=== PATIENT | female | born 1950 | race Caucasian/White ===

== ENCOUNTER 2024-01-24 14:56 | Emergency (ER) | payer MEDICARE, MEDICAID ==
[~2024-01-24] VITALS: Ht 162.6 cm; Wt 91.8 kg
[~2024-01-24 14:56] MED LIST: ADV50250; ALBU18HF2 INH; ALBU2.5V10 NEB; ANAS1TAB10 PO; APIX5TAB3 PO; ASPI-1397 PO; ATOR40TA72 PO; BACL10TA2 PO; CETI10TA14 PO; CHOL20002 PO; CYCL1DRO EACHEYE; FLUT16SP26 BOTHNARES; FURO40TA4 PO; GABA300T25; KETO-96; MILN50TA PO; MONT-40 PO; OMEP20CA16 PO; ONDA4TAB12 PO; POTA8TAB69; TRIA1TAB3
[2024-01-24 14:59] VITALS: BP 138/59; PULSE 73; TEMP 98; O2SAT 98
[2024-01-24 16:06] VITALS: RESP 20
[2024-01-24] MEDS: HYDROcodone/acetaminophen 10/325mg tab PO ONE (16:06)
[2024-01-24] MEDS: LIDOcaine 5% patch TP ONE (16:07)
[2024-01-24] MEDS ORDERED: LIDO700A32 TOP (16:14)
== END 2024-01-24 17:07 | disposition home or self-care (01) ==
LOC: ER 14:56
DX: M54.50 Low back pain, unspecified (principal); J44.9 Chronic obstructive pulmonary disease, unspecified; Z88.5 Allergy status to narcotic agent; Z79.899 Other long term (current) drug therapy; Z79.82 Long term (current) use of aspirin
CPT/HCPCS: 99284

== ENCOUNTER 2024-01-30 08:17 | Emergency (ER) | payer MEDICARE, MEDICAID ==
[~2024-01-30] VITALS: Ht 162.6 cm; Wt 93.2 kg
[~2024-01-30 08:17] MED LIST changes: +LIDO700A32 TOP
[2024-01-30 08:21] VITALS: TEMP 97.7
[2024-01-30] MEDS: cyclobenzaprine 10mg tablet PO ONE (12:10)
[2024-01-30] MEDS: LIDOcaine 5% patch TP ONE (13:52)
[2024-01-30 14:01] VITALS: BP 109/45; PULSE 69; O2SAT 96
[2024-01-30 14:22] VITALS: RESP 16
[2024-01-30] MEDS: HYDROcodone/acetaminophen 10/325mg tab PO ONE (14:22)
[2024-01-30] MEDS ORDERED: CYCL-1 PO (14:59)
[2024-01-30] MEDS ORDERED: LIDO1ADH78 TOP (14:59)
== END 2024-01-30 15:24 | disposition home or self-care (01) ==
LOC: ER 08:18
DX: S39.012A Strain of muscle, fascia and tendon of lower back, initial encounter (principal); J44.9 Chronic obstructive pulmonary disease, unspecified; E11.9 Type 2 diabetes mellitus without complications; Z88.6 Allergy status to analgesic agent; Z88.5 Allergy status to narcotic agent; Z79.899 Other long term (current) drug therapy; Z79.82 Long term (current) use of aspirin; X58.XXXA Exposure to other specified factors, initial encounter; Y93.89 Activity, other specified; Y92.89 Other specified places as the place of occurrence of the external cause; Y99.8 Other external cause status
CPT/HCPCS: 72100; 99284

== ENCOUNTER 2025-01-25 06:42 | Day surgery (SDC) | payer MEDICARE, MEDICAID ==
[~2025-01-25] VITALS: Ht 162.6 cm; Wt 96.8 kg
[2025-01-25] VITALS (13 sets, daily range): BP systolic 120–146; BP diastolic 3–65; PULSE 65–80; RESP 15–18; TEMP 98.4; O2SAT 96–100
[~2025-01-25 06:42] MED LIST changes: +CYCL-1 PO; +LIDO1ADH78 TOP; +ONDA-243 PO; -ONDA4TAB12 PO
[2025-01-25] MEDS ORDERED: FERR325T35 PO (08:25)
[2025-01-25] MEDS ORDERED: EMPA10TA PO (08:25)
[2025-01-25] MEDS ORDERED: SACU1TAB7 PO (08:25)
[2025-01-25] MEDS: MIDAZolam 1mg/ml 10ml vial IV ONE (09:47)
[2025-01-25] MEDS: fentaNYL/PF 50MCG/1 ML 2ML syringe IV ONE (09:47)
[2025-01-25] MEDS: normal saline 1000ml 1,000 ML IV SCH (09:48)
--- NOTE | 2025-01-25 11:28 | CARDIOLOGY REPORT ---
APPROVED REPORT EXAM: Focused, limited transesophageal echocardiogram with color flow Doppler. Patient Location: OUT-PATIENT Blood Pressure: 121/63 mmHg Heart Rate: 68 bpm Rhythm: SINUS Indications RE-ASSESS AVR 2011 (UNKNOWN SIZE/MODEL) ATRIAL FIBRILALTION CARDIOMEGALY ADELITA PROBE PASSED BY: Daniel Isaacs MD Shot Man: Daniel ISAACS MD Previous echo: 01/04/25 CVC UNK EF: 80%; smLV; modLVH; LVOT grad: 56 w/ gordo; smRV; SEVavr as - STEF N R; pkV: 4.39; grrad: 77 / 50; AI: NR; mMAC; RVSP 34 LEFT VENTRICLE Small LV size with hyperdynamic function. At least moderate concentric hypertrophy. Increased velocit ies throughout LV / LVOT / AV / ASC AO detected as a result of the hyperdynamic function and prosthes is stenosis. Resting intercavitary gradient unable to be measured due to poor gastric views. Suspect significant intercavitary gradient. LVEF is 80%. RIGHT VENTRICLE RV is small in size with hyperdynamic function. ATRIA Left atrium appears mildly dilated. Intact interatrial septum - no flow detected. AORTIC VALVE Unknown size or model bioprosthetic SAVR appears well seated with abnormal function. Trace central va lvular leak Quantitative data unobtainable due to poor gastric windows. Significant leaflet restrict ion demonstrated by reduced excursion and increased transvalvular and ascending aorta turbulance. Mel pect LVOT gradient as well. MITRAL VALVE Mild MV annular calcification without stenosis. Trace regurgitation. Limited evaluation due to focuse d exam. TRICUSPID VALVE TV appears structurally normal with trace regurgitation. Limited evaluation due to focused exam. PULMONIC VALVE Normal PV without obvious stenosis, physiologic insufficiency. Limited evaluation due to focused exa m. GREAT VESSELS Aortic root appears normal in size. Ascending aorta appears upper limit normal in size. PERICARDIUM Normal pericardium. Trivial effusion without hemodynamic compromise. CONCLUSION Small LV size with hyperdynamic function. At least moderate concentric hypertrophy. Increased velocit ies throughout LV / LVOT / AV / ASC AO detected as a result of the hyperdynamic function and prosthes is stenosis. Resting intercavitary gradient unable to be measured due to poor gastric views. Suspect significant intercavitary gradient. LVEF is 80%. RV is small in size with hyperdynamic function. Left atrium appears mildly dilated. Intact interatrial septum - no flow detected. Unknown size or model b ioprosthetic SAVR appears well seated with abnormal function. Trace central valvular leak Quantitativ e data unobtainable due to poor gastric windows. Significant leaflet restriction demonstrated by redu jett excursion and increased transvalvular and ascending aorta turbulance. Suspect LVOT gradient as we ll. Mild MV annular calcification without stenosis. Trace regurgitation. Limited evaluation due to fo cused exam. TV appears structurally normal with trace regurgitation. Limited evaluation due to focuse d exam. Aortic root appears normal in size. Ascending aorta appears upper limit normal in size. Maryam l pericardium. Trivial effusion without hemodynamic compromise. Conclusion Small LV size with hyperdynamic function. At least moderate concentric hypertrophy. Increased veloc ities throughout LV / LVOT / AV / ASC AO detected as a result of the hyperdynamic function and prosth esis stenosis. Resting intercavitary gradient unable to be measured due to poor gastric views. Susp ect significant intercavitary gradient. LVEF is 80%. RV is small in size with hyperdynamic function. Left atrium appears mildly dilated. Intact interatrial septum - no flow detected. Unknown size or model bioprosthetic SAVR appears well seated with abnormal function. Trace central v alvular leak Quantitative data unobtainable due to poor gastric windows. Significant leaflet restri ction demonstrated by reduced excursion and increased transvalvular and ascending aorta turbulance. S uspect LVOT gradient as well. Mild MV annular calcification without stenosis. Trace regurgitation. Limited evaluation due to focu sed exam. TV appears structurally normal with trace regurgitation. Limited evaluation due to focused exam. Aortic root appears normal in size. Ascending aorta appears upper limit normal in size. Normal pericardium. Trivial effusion without hemodynamic compromise.
== END 2025-01-25 23:59 | disposition home or self-care (01) ==
LOC: SSTAY O 06:42 → EDSTATUS 11:00 → SSTAY O 23:59
PROVIDERS: ATTEND Internal Medicine Interventional Cardiology
DX: I48.0 Paroxysmal atrial fibrillation (principal); I08.8 Other rheumatic multiple valve diseases; G47.33 Obstructive sleep apnea (adult) (pediatric); J44.9 Chronic obstructive pulmonary disease, unspecified; I11.0 Hypertensive heart disease with heart failure; I50.9 Heart failure, unspecified; I49.5 Sick sinus syndrome; Z79.899 Other long term (current) drug therapy; G62.9 Polyneuropathy, unspecified; Z88.8 Allergy status to other drugs, medicaments and biological substances
CPT/HCPCS: 93312; 93325; 94760; J2250; J3010; J7030

== ENCOUNTER 2025-02-15 10:15 | Day surgery (SDC) | payer MEDICARE, MEDICAID ==
[2025-02-11 09:55] LABS: BASOPHILS # (AUTO) 0.1 X10'3 (0-0.2); EOSINOPHILS # (AUTO) 0.1 X10'3 (0-0.9); HEMOGLOBIN 12.5 g/dl (12.0-16.0); MONOCYTES # (AUTO) 0.6 X10'3 (0-0.9); NEUTROPHILS # (AUTO) 6.4 X10'3 (1.8-7.7); WHITE BLOOD COUNT 8.8 X10'3 (4.5-11.0)
[2025-02-11 09:56] LABS: BASOPHILS % (AUTO) 0.9 % (0-1); EOSINOPHILS % (AUTO) 1.4 % (0-6); HEMATOCRIT 38.9 % (35.0-45.0); LYMPHOCYTES # (AUTO) 1.6 X10'3 (1.1-4.8); MEAN CORPUSCULAR HEMOGLOBIN 28.3 PG (27.0-31.0); MEAN CORPUSCULAR HGB CONC 32.1 g/dL (33.0-36.5); MEAN CORPUSCULAR VOLUME 88.3 FL (78-98); MEAN PLATELET VOLUME 9.3 FL (7.4-10.4); NEUTROPHILS % (AUTO) 72.7 % (42-75); PLATELET COUNT 179 X10'3 (140-440); RED CELL DISTRIBUTION WIDTH 13.7 % (11.5-14.5)
[2025-02-11 10:09] LABS: APTT 31 SECONDS (22-32); INR 1.1 INR; PROTHROMBIN TIME 11.1 SECONDS (9.0-12.0)
[2025-02-11 10:19] LABS: ALBUMIN 3.4 G/DL (3.4-5.0); ANION GAP 10 (8-16); BLOOD UREA NITROGEN 11 MG/DL (7-18); BUN/CREATININE RATIO 10.1 (10.0-20.0); CALCIUM 8.8 MG/DL (8.5-10.1); CHLORIDE 107 MMOL/L (99-107); CHOLESTEROL 137 MG/DL (0-200); CREATININE 1.09 MG/DL (0.40-0.90); GLUCOSE 106 MG/DL (70-104); HDL CHOLESTEROL 68 MG/DL (35-60); LDL CHOLESTEROL 51 MG/DL (50-100); POTASSIUM 4.8 MMOL/L (3.5-5.1); SODIUM 145 MMOL/L (135-145); TOTAL CARBON DIOXIDE 27.7 MMOL/L (24-32); TRIGLYCERIDES 114 MG/DL (20-135); eGFR 49 ML/MIN
[2025-02-15] VITALS (7 sets, daily range): BP systolic 100–117; BP diastolic 49–88; PULSE 65–79; RESP 13–17; TEMP 98.4; O2SAT 67–97
[~2025-02-15] VITALS: Ht 162.6 cm; Wt 96.0 kg
[~2025-02-15 10:15] MED LIST changes: +ACET-3174 PO; -ADV50250; -ALBU2.5V10 NEB; -ASPI-1397 PO; -BACL10TA2 PO; -CHOL20002 PO; +CYAN10007 IM; -CYCL-1 PO; +DOCU-391 PO; +EMPA10TA PO; +FERR325T35 PO; +FLUT1BLS3 INH; -FURO40TA4 PO; -GABA300T25; +IPRA3AMP31 NEB; -KETO-96; +LATA2.5D14 EACHEYE; -LIDO1ADH78 TOP; +LIDO70.9; -LIDO700A32 TOP; +MECL-302 PO; +METO-411 PO; +MIRT-87 PO; +NITR0.4T48; -OMEP20CA16 PO; +OMEP20TA43 PO; +POLY119P2 PO; -POTA8TAB69; +REVE175V NEB; +SACU1TAB7 PO; -TRIA1TAB3; +[UNRECOGNIZED DRUG - CODE]
--- NOTE | 2025-02-15 11:22 | ELECTROCARDIOGRAPH REPORT ---
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
[2025-02-15] MEDS: normal saline 1,000 ML IV SCH (11:49)
[2025-02-15] MEDS: diphenhydrAMINE 25mg capsule PO PRN (11:49)
[2025-02-15] MEDS: LORazepam 0.5 MG tablet PO PRN (11:49)
[2025-02-15] MEDS ORDERED: nitroGLYCERIN 500mcg/5mL D5W 5 ML IV ONE (12:34)
[2025-02-15] MEDS ORDERED: verapamil 2.5 mg/ml inj IV ONE (12:35)
[2025-02-15] MEDS ORDERED: LIDOcaine 1% (10mg/ml) 2ml vial ONE (12:35)
[2025-02-15] MEDS ORDERED: iohexol 350MG/ML 100ml bottle IV ONE (12:35)
[2025-02-15] MEDS ORDERED: heparin 1,000unit/ml 10ml vial 10 ML ONE (12:35)
[2025-02-15] MEDS ORDERED: fentaNYL/PF 50MCG/1 ML 2ML syringe ONE (13:04)
[2025-02-15] MEDS ORDERED: midazolam 1 mg/ML 2ml injection ONE (13:04)
[2025-02-15 13:47] LABS: ISTAT HGB ART 11.9 g/dl (12.0-16.0); ISTAT Hct ART 35 %PCV (35-45); ISTAT O2 SATURATION ARTERIAL 91 % (95-98); ISTAT SOURCE ART
[2025-02-15] MEDS ORDERED: iohexol 350 MG/ML 50ML vial IV ONE (13:53)
[2025-02-15 14:04] LABS: ISTAT HGB MIX 11.9 g/dl (12.0-16.0); ISTAT Hct MIX 35 %PCV (35-45); ISTAT O2 SATURATION MIX VENOUS 66 % (60-80); ISTAT SOURCE VEN
--- NOTE | 2025-02-15 14:43 | CARDIAC CATH REPORT ---
Cardiac Cath Report Providers to CC CC: KIMBER BOLTON MD Procedure Comments: 1. Right Heart Catheterization 2. Left Heart Catheterization 3. Coronary Angiography 4. Right Brachial vein access 5. Right Radial artery access Brief History/Indications: 75yo woman with HTN, HLD, COPD, JUDE, SSS(s/p PPM), (s/p sAVR) with increased dyspnea, concerns of prosthetic valve stenosis vs hyperdynamic LV. Techniques: After informed consent was obtained, the patient was brought to the cardiac catheterization laboratory and prepped and draped in usual sterile fashion for left heart catheterization and other procedures mentioned above. The right wrist and right AC fossa were anesthetized with 1% Lidocaine. The right AC IV was exchanged over a wire for an 6fr sheath. The right radial artery accessed via the Seldinger technique after which a 6Fr sheath was placed. The [place] was advanced via the right AC sheath to the right atrium, the right ventricle, the pulmonary artery, and wedge position. Through the 6Fr right radial sheath, a TIG was used to engage the left coronary artery and a JR3.5 to engage the right coronary artery. The JR4 and wire were used to cross into the LV at which time it was exchanged for a [place] catheter. At the conclusion of the case the sheath was removed and hemostasis obtained with a VascBand for the radial sheath and manual compression for the brachial sheath. Findings Findings: HEMODYNAMICS: RA: 9 mmHg RV: 27/3, RVEDP 10 mmHg PA: 22/5, mPAP 12 mmHg PCWP: 5 mmHg(V-waves to 9mmHg) TP mmHg DP mmHg HR: 72 bpm PA Sat: 66% Ao Sat: 91% CO/CI (Artemio): 4.52/2.26 PVR: 1.5 ADAMS LV/AO: LV: 184/7, LVEDP 19mmHg Ao: 138/63, MAP 88mmHg ++Post PVC change On Slow pullback at valve level: LV: 147/8, LVEDP 18mmHg Ao: 126/59, MAP 85mmHg CORONARY ARTERIES: Co Dominant LMCA: Luminal Irregularities LAD: Luminal Irregularities Dx: Luminal Irregularities LCx: Luminal Irregularities OM1: Luminal Irregularities RCA: Luminal Irregularities PDA: Luminal Irregularities PL: Luminal Irregularities Results Results: 1. Significant intra-cavitary gradient, ~ 60mmHg, decreased to ~ 20mmHg across the valve indicating well functioning bioprosthetic aortic valve 2. No significant obstructive CAD 3. RRA and RBV access, closed with VascBand and manual compression RECOMMENDATIONS: 1. Cont uptitration of max-tolerated GDMT LOUIE BOLTON MD Feb 15, 2025 14:43
[2025-02-15] MEDS ORDERED: HYDROcodone/acetaminophen 5mg/325mg tablet PO PRN (14:45)
[2025-02-15] MEDS ORDERED: HYDROcodone/acetaminophen 10/325mg tab PO PRN (14:45)
== END 2025-02-15 16:10 | disposition home or self-care (01) ==
LOC: SSTAY O 10:15
PROVIDERS: ATTEND Student in an Organized Health Care Education/Training Program
DX: I35.0 Nonrheumatic aortic (valve) stenosis (principal); E78.5 Hyperlipidemia, unspecified; J44.9 Chronic obstructive pulmonary disease, unspecified; I11.0 Hypertensive heart disease with heart failure; I50.9 Heart failure, unspecified; I48.0 Paroxysmal atrial fibrillation; G47.33 Obstructive sleep apnea (adult) (pediatric); I49.5 Sick sinus syndrome; Z79.899 Other long term (current) drug therapy; Z95.0 Presence of cardiac pacemaker; I48.91 Unspecified atrial fibrillation; Z85.3 Personal history of malignant neoplasm of breast
CPT/HCPCS: 80048; 80061; 82803; 82948; 83695; 85014; 85025; 85610; 85730; 93005; 93460; 99152; 99153; A6258; A6402; C1751; C1887; C1894; J1644; J2003; J2250; J3010; J3490; J7030; J7040; Q0163; Q9967; Z7610; A6449